=== PATIENT | female | born 1945 | race Caucasian/White ===

== ENCOUNTER 2019-10-20 04:07 | Observation (INO) ==
[2019-10-20 04:19] VITALS: BMI 23.8
[2019-10-20] MEDS ORDERED: NS 500 ML IV 500 ML IV ONE ×2 (04:47→04:53)
[2019-10-20] MEDS ORDERED: MORPHINE SULFATE INJ 2 MG INJ IVP ONE (04:56)
--- NOTE | 2019-10-20 04:56 | ED.ABDFE ---
HPI Time Seen Time Seen by Provider: 10/20/19 04:45 Complaint Doctors Chief Complaint Comments: A 74 y/o female presenting with complain of Lt sided abdominal pain since sometimes yesterday. She can't characterize it- It's just pain. She denies fever, nausea or vomiting. She denies recent travel or c onsumption of poorly prepared meals. She had a recent BM. Chief Complaint:: PT STATES" I'M HURTING IN MY LOWER LT ABD I HAD SOME DIARRHEA YESTERDAY" Reviewed Nurses Notes Review: Yes Source History Provided: Patient Mode of arrival Mode of Arrival: Ambulatory Timing Onset of Chief Complaint: 10/20/19 Location Location: [facility] Quality Quality: Other (unable to describe) Context History of: Abdominal surgery Modifying factors Worsening Factors: Nothing Improving Factors: Nothing Associated signs and symptoms Associated Signs and Symptoms: None PMH PMH Past Medical History: No Past Surgical History: Yes Surgical History: Cholecystectomy and Tonsillectomy Family History History of Family Medical Conditions: No Social History Does patient currently use any type of tobacco product: Yes Have you used tobacco products in the last 12 months: Yes Type of Tobacco Use: Cigarettes Does any household member use tobacco: Yes Alcohol Use: Occasionally Do you use any recreational Drugs:: No Lives With: Family Lives Where: Home Travel Risk Coronavirus risk:travel/contact w/high risk person: No Has patient experienced Coronavirus symptoms: No Infectious screening In the last 2 months have you had wt loss of >10#?: NO Have you had fever, night sweats or hemotysis?: No Have you traveled outside the country in the last 6 months?: No Isolation: Standard ROS Review of Systems Constitutional: No Symptoms Reported Eyes: No Symptoms Reported ENTM: No Symptoms Reported Respiratoy: No Symptoms Reported Cardiovascular: No Symptoms Reported Gastrointestinal/Abdominal: Abdominal Pain Genitourinary: No Symptoms Reported Neurological: No Symptoms Reported Musculoskeletal: No Symptoms Reported Integumentary: No Symptoms Reported Hematologic/Lymphatic: No Symptoms Reported Endocrine: No Symptoms Reported Psychiatric: No Symptoms Reported All Other Systems: Reviewed and Negative PE Vital Signs Vitals: Temperature 97.6 F Pulse Rate 88 Respiratory Rate 20 Blood Pressure 194/84 O2 Sat by Pulse Oximetry 95 General Limitations: No Limitations General Appearance: Alert Head Head Exam: Normal Inspection, Atraumatic and Normocephalic Eyes Eye exam: Normal Appearance and EOMI ENT ENT Exam: Normal Exam, Normal Oropharynx, Normal External Ear Exam and Mucous Membranes Moist Neck Neck Exam: Normal Inspection, Full ROM and Trachea Midline Chest Chest Inspection: Normal Inspection and Symmetric Chest Wall Rise Respiratory Respiratory Exam: Normal Lung Sounds Bilat Cardiovascular Cardiovascular Exam: Regular Rate, Normal Rhythm, Normal Heart Sounds, +S1 and +S2 Abdominal Exam Abdominal Exam: Normal Inspection, Normal Bowel Sounds, Soft and Tenderness; negative Distention, Guarding, Rebound, Rigidity, Dimnished Bowel Sounds, Hyperactive Bowel Sounds, Hypoactive Bowel Sounds, Organomegaly, Trauma, Incision, Ascites, Mass, Bruit, Pulsatile Mass and Hernia Abdominal Tenderness: LLQ Rectal Rectal Exam: Deferred Back Back Exam: Normal Inspection and Full ROM Extremeties Extremities Exam: Normal Inspection and Full ROM External Exam: Female: Deferred Neurologic Neurological Exam: Alert and Oriented X3 Psychiatric Psychiatric Exam: Normal Affect and Normal Mood Skin Skin Exam: Dry and Intact MDM Differential Diagnosis Differential Diagnosis- Considerations may include:: Urolithiasis and Other (comments) (Diverticulitis) COURSE Reevaluation 1st: Improved Consultation Consultation Comments: I had discussed the presentation and findings with Dr. Toth, he's okay with the admission to OBS. Education/Counseling Education/Counseling: Patient, Education and Counseling Educated On: Treatment, Diagnosis, Prognosis and Needs for Follow Up ROR Labs Reviewed Laboratory Results Reviewed?: Yes Result Diagrams: 10/20/19 05:05 10/20/19 05:05 Laboratory: WBC 10.5 X10^3/uL (3.6-10.0) H 10/20/19 05:05 RBC 4.06 X10^6/uL (3.5-5.4) 10/20/19 05:05 Hgb 12.7 g/dL (12.0-16.0) 10/20/19 05:05 Hct 37.2 % (36.0-47.0) 10/20/19 05:05 MCV 91.6 fL (80.0-100.0) 10/20/19 05:05 MCH 31.3 pg (27.0-34.0) 10/20/19 05:05 MCHC 34.2 g/dL (33.0-35.0) 10/20/19 05:05 RDW 13.0 % (11.6-16.5) 10/20/19 05:05 Plt Count 232 X10^3/uL (150.0-450.0) 10/20/19 05:05 MPV 8.4 fL (7.4-11.0) 10/20/19 05:05 Neut % (Auto) 81.2 % (42.0-75.0) H 10/20/19 05:05 Lymph % (Auto) 11.1 % (21.0-51.0) L 10/20/19 05:05 [place] % (Auto) 6.9 % (0.0-13.0) 10/20/19 05:05 Eos % (Auto) 0.1 % (0.9-2.9) L 10/20/19 05:05 Baso % (Auto) 0.7 % (0.2-1.0) 10/20/19 05:05 Neut # (Auto) 8.5 x10^3/uL (2.2-4.8) H 10/20/19 05:05 Lymph # (Auto) 1.2 X10^3/uL (1.3-2.9) L 10/20/19 05:05 [place] # (Auto) 0.7 x10^3/uL (0.3-0.8) 10/20/19 05:05 Eos # (Auto) 0.0 x10^3/uL (0.0-0.2) 10/20/19 05:05 Baso # (Auto) 0.1 X10^3/uL (0.0-0.1) 10/20/19 05:05 Absolute Nucleated RBC 0.0 /100WBC 10/20/19 05:05 Sodium 141 mmol/L (136-145) 10/20/19 05:05 Corrected Sodium 142 mmol/L (136-145) 10/20/19 05:05 Potassium 3.5 mmol/L (3.5-5.1) 10/20/19 05:05 Chloride 103 mmol/L (98-107) 10/20/19 05:05 Carbon Dioxide 26.1 mmol/L (21-32) 10/20/19 05:05 BUN 15 mg/dL (7-18) 10/20/19 05:05 Creatinine 0.81 mg/dL (0.55-1.02) 10/20/19 05:05 Est GFR (MDRD) Af Amer > 60 (>60) 10/20/19 05:05 Est GFR (MDRD) Non-Af > 60 (>60) 10/20/19 05:05 Glucose 134 mg/dL (65-99) H 10/20/19 05:05 Calcium 9.3 mg/dL (8.5-10.1) 10/20/19 05:05 Corrected Calcium TNP 10/20/19 05:05 Total Bilirubin 0.80 mg/dL (0.2-1.0) 10/20/19 05:05 AST 20 Units/L (15-37) 10/20/19 05:05 ALT 29 Units/L (12-78) 10/20/19 05:05 Alkaline Phosphatase 149 Units/L (46-116) H 10/20/19 05:05 Total Protein 7.5 g/dL (6.4-8.2) 10/20/19 05:05 Albumin 3.7 g/dL (3.4-5.0) 10/20/19 05:05 Globulin 3.8 g/dL (2.5-4.5) 10/20/19 05:05 Albumin/Globulin Ratio 1.0 Ratio (1.1-2.1) L 10/20/19 05:05 Opioid Opioid Risk Tool Age ([place] box if 16-45): No History of Preadolescent Sexual Abuse: No Total: 0 Total Score Risk Category: Low Risk Copyright: [facility] predicting aberrant behaviors Diagnosis Discharge Problem: Renal colic on left side, Diverticulosis of colon ADDITIONAL NOTES Additional Notes Additional Notes: Name: EDDIE CORONADO [facility]#: [id number] : 1945 Sex: F Location: ER Order Number(s): [id number] Procedure(s):ABDOMEN/PELVIS WITH CON Ordering Physician: XIAO EVANS Primary Care: Chetna MON Service Date: 10/20/19 Service Time: 719 HISTORY LLQ PAIN STUDY ABDOMEN/PELVIS WITH CON COMPARISON None TECHNIQUE Multiple axial images of the abdomen and pelvis were obtained from the lung bases to the pubic symphysis after the administration of IV contrast. Dose reduction techniques including Automated Exposure Control (AEC) and adjustment of mA and kV were utilized. FINDINGS The visualized portions of the lung bases are unremarkable. The left kidney demonstrates some mild hydronephrosis and hydroureter secondary to a 3 mm proximal left ureteral stone. The solid organs otherwise unremarkable in their contrast appearance. The gallbladder is surgically absent with some biliary ductal dilatation which is commonly seen in patients status post cholecystectomy.... No significant mesenteric lymphadenopathy or stranding can be observed. No free fluid or free air is seen within the abdomen. No bowel wall thickening or bowel dilatation is present. The colon demonstrates severe diverticulosis involving the left-sided colon most notably in the sigmoid colon. There is no evidence to suggest diverticulitis. The appendix is normal. There is tiny calcified probable uterine fibroids.. The urinary bladder is grossly unremarkable. The bony structures are grossly intact. IMPRESSION Left-sided obstructive uropathy as above. Left-sided diverticulosis without evidence for diverticulitis. Electronically signed by: CAITIE LONG (Oct 20, 2019 07:45:28)
[2019-10-20] MEDS ORDERED: MORPHINE SULFATE INJ 2 MG INJ ONE (05:19)
[2019-10-20 05:20] LABS: BASOPHILS # (AUTO) 0.1 X10^3/uL (0.0-0.1); BASOPHILS % (AUTO) 0.7 % (0.2-1.0); EOSINOPHILS % (AUTO) 0.1 % (0.9-2.9); HEMATOCRIT 37.2 % (36.0-47.0); HEMOGLOBIN 12.7 g/dL (12.0-16.0); LYMPHOCYTES # (AUTO) 1.2 X10^3/uL (1.3-2.9); LYMPHOCYTES % (AUTO) 11.1 % (21.0-51.0); MEAN CORPUSCULAR HEMOGLOBIN 31.3 pg (27.0-34.0); MEAN CORPUSCULAR HGB CONC 34.2 g/dL (33.0-35.0); MEAN CORPUSCULAR VOLUME 91.6 fL (80.0-100.0); MEAN PLATELET VOLUME 8.4 fL (7.4-11.0); MONOCYTES # (AUTO) 0.7 x10^3/uL (0.3-0.8); MONOCYTES % (AUTO) 6.9 % (0.0-13.0); NEUTROPHILS # (AUTO) 8.5 x10^3/uL (2.2-4.8); NEUTROPHILS % (AUTO) 81.2 % (42.0-75.0); PLATELET COUNT 232 X10^3/uL (150.0-450.0); RED BLOOD COUNT 4.06 X10^6/uL (3.5-5.4); WHITE BLOOD COUNT 10.5 X10^3/uL (3.6-10.0)
[2019-10-20 05:29] LABS: ALANINE AMINOTRANSFERASE 29 Units/L (12-78); ALBUMIN 3.7 g/dL (3.4-5.0); ALKALINE PHOSPHATASE 149 Units/L (46-116); ASPARTATE AMINO TRANSFERASE 20 Units/L (15-37); BLOOD UREA NITROGEN 15 mg/dL (7-18); CALCIUM 9.3 mg/dL (8.5-10.1); CARBON DIOXIDE 26.1 mmol/L (21-32); CHLORIDE 103 mmol/L (98-107); COR NA(FOR HYPERGLY) 142 mmol/L (136-145); CREATININE 0.81 mg/dL (0.55-1.02); SODIUM 141 mmol/L (136-145); TOTAL PROTEIN 7.5 g/dL (6.4-8.2); eGFR NON BLACK RACES > 60 (>60)
--- NOTE | 2019-10-20 07:47 | CT ---
HISTORYLLQ PAINSTUDYABDOMEN/PELVIS WITH CONCOMPARISONNoneTECHNIQUEMultiple axial images of the abdomen and pelvis were obtained from the lung bases to the pubic symphysis after the administration of IV contrast. Dose reduction techniques including Automated Exposure Control (AEC) and adjustment of mA and kV were utilized.FINDINGSThe visualized portions of the lung bases are unremarkable. The left kidney demonstrates some mild hydronephrosis and hydroureter secondary to a 3 mm proximal left ureteral stone. The solid organs otherwise unremarkable in their contrast appearance. The gallbladder is surgically absent with some biliary ductal dilatation which is commonly seen in patients status post cholecystectomy.... No significant mesenteric lymphadenopathy or stranding can be observed. No free fluid or free air is seen within the abdomen. No bowel wall thickening or bowel dilatation is present. The colon demonstrates severe diverticulosis involving the left-sided colon most notably in the sigmoid colon. There is no evidence to suggest diverticulitis. The appendix is normal. There is tiny calcified probable uterine fibroids.. The urinary bladder is grossly unremarkable. The bony structures are grossly intact.IMPRESSIONLeft-sided obstructive uropathy as above.Left-sided diverticulosis without evidence for diverticulitis.Electronically signed by: CAITIE LONG (Oct 20, 2019 07:45:28)
--- NOTE | 2019-10-20 09:18 | DR.H&P ---
H&P History & Physical for Day of: H&P Date: 10/20/19 Chief Complaint Chief Complaint: Left sided flank pain Allergies Allergies Allergy/AdvReac Type Severity Reaction Status Date / Time Penicillins Allergy Verified 10/20/19 05:20 History of Present Illness History of Present Illness: Pt is a 74 y/o female w/o any known pmhx presenting after having left sided abdominal/flank pain since yesterday. She reports pain is sharp, spastic, without radiation. Denies fever, chills, chest pain, shortness of breath, dysuria, nausea, vomiting, diarrhea. Initial labs:Wbc 10.5, Hgb 12.7, Plt 232, Cr 0.81, Gluc 134. CTAP:L kidney mild hydronephrosis, 3mm proximal L ureteral stone (L sided obstructive uropathy), L sided diverticulosis w/o evidence of diverticulitis. Pt given IVF bolus and started on IVF, pain management, will get a UA, start flomax. BP elevated, will start on Norvasc 10mg. Continue to monitor and follow up labs in the morning. Past Surgical History Surgical History: Cholecystectomy and Tonsillectomy Social History Does patient currently use any type of tobacco product: Yes Have you used tobacco products in the last 12 months: Yes Type of Tobacco Use: Cigarettes Does any household member use tobacco: Yes Alcohol Use: Occasionally Medications Home Medications: Penicillins Allergy (Verified 10/20/19 05:20) Labs Result Diagrams: 10/20/19 05:05 10/20/19 05:05 Labs: Laboratory WBC 10.5 X10^3/uL (3.6-10.0) H 10/20/19 05:05 RBC 4.06 X10^6/uL (3.5-5.4) 10/20/19 05:05 Hgb 12.7 g/dL (12.0-16.0) 10/20/19 05:05 Hct 37.2 % (36.0-47.0) 10/20/19 05:05 MCV 91.6 fL (80.0-100.0) 10/20/19 05:05 MCH 31.3 pg (27.0-34.0) 10/20/19 05:05 MCHC 34.2 g/dL (33.0-35.0) 10/20/19 05:05 RDW 13.0 % (11.6-16.5) 10/20/19 05:05 Plt Count 232 X10^3/uL (150.0-450.0) 10/20/19 05:05 MPV 8.4 fL (7.4-11.0) 10/20/19 05:05 Neut % (Auto) 81.2 % (42.0-75.0) H 10/20/19 05:05 Lymph % (Auto) 11.1 % (21.0-51.0) L 10/20/19 05:05 [place] % (Auto) 6.9 % (0.0-13.0) 10/20/19 05:05 Eos % (Auto) 0.1 % (0.9-2.9) L 10/20/19 05:05 Baso % (Auto) 0.7 % (0.2-1.0) 10/20/19 05:05 Neut # (Auto) 8.5 x10^3/uL (2.2-4.8) H 10/20/19 05:05 Lymph # (Auto) 1.2 X10^3/uL (1.3-2.9) L 10/20/19 05:05 [place] # (Auto) 0.7 x10^3/uL (0.3-0.8) 10/20/19 05:05 Eos # (Auto) 0.0 x10^3/uL (0.0-0.2) 10/20/19 05:05 Baso # (Auto) 0.1 X10^3/uL (0.0-0.1) 10/20/19 05:05 Absolute Nucleated RBC 0.0 /100WBC 10/20/19 05:05 Sodium 141 mmol/L (136-145) 10/20/19 05:05 Corrected Sodium 142 mmol/L (136-145) 10/20/19 05:05 Potassium 3.5 mmol/L (3.5-5.1) 10/20/19 05:05 Chloride 103 mmol/L (98-107) 10/20/19 05:05 Carbon Dioxide 26.1 mmol/L (21-32) 10/20/19 05:05 BUN 15 mg/dL (7-18) 10/20/19 05:05 Creatinine 0.81 mg/dL (0.55-1.02) 10/20/19 05:05 Est GFR (MDRD) Af Amer > 60 (>60) 10/20/19 05:05 Est GFR (MDRD) Non-Af > 60 (>60) 10/20/19 05:05 Glucose 134 mg/dL (65-99) H 10/20/19 05:05 Calcium 9.3 mg/dL (8.5-10.1) 10/20/19 05:05 Corrected Calcium TNP 10/20/19 05:05 Total Bilirubin 0.80 mg/dL (0.2-1.0) 10/20/19 05:05 AST 20 Units/L (15-37) 10/20/19 05:05 ALT 29 Units/L (12-78) 10/20/19 05:05 Alkaline Phosphatase 149 Units/L (46-116) H 10/20/19 05:05 Total Protein 7.5 g/dL (6.4-8.2) 10/20/19 05:05 Albumin 3.7 g/dL (3.4-5.0) 10/20/19 05:05 Globulin 3.8 g/dL (2.5-4.5) 10/20/19 05:05 Albumin/Globulin Ratio 1.0 Ratio (1.1-2.1) L 10/20/19 05:05 Review of Systems Constitutional: denies Fever and Chills Eyes: No Symptoms Reported ENT: No Symptoms Reported Respiratory: No Symptoms Reported Cardiovascular: No Symptoms Reported Gastrointestinal: Abdominal Pain (Left flank) Genitourinary: denies Dysuria and Frequency Musculoskeletal: No Symptoms Reported Skin: No Symptoms Reported Neurological: No Symptoms Reported Physical Exam Vital Signs: Temperature 97.6 F Pulse Rate 88 Respiratory Rate 18 Blood Pressure 194/84 O2 Sat by Pulse Oximetry 100 Oriented: Normal Eyes: Normal Ear: Normal Nose: Normal Throat: Normal Respiratory: Clear Throughout Cardiovascular: Normal : negative Dysuria Auscultation: Bowel Sounds: Normal Palpation: Normal Tenderness: LLQ, Mild and Guarding; negative Rebound and Rigidity Skin: Normal Musculoskeletal: Normal Psychiatric: Normal Mood Description: Calm Speech Pattern: Clear Assessment/Plan (1) Left ureteral stone: Status: Acute Plan: 3mm obstructing Left ureteral stone. Will start on IVF, Flomax. Mildly elevated wbc, will get UA. F/u results. (2) Renal colic on left side: Status: Acute (3) Diverticulosis of colon: Status: Acute (4) Hypertension: Status: Acute Plan: BP elevated, will start on Norvasc 10mg. Review H&P Reviewed: Yes Patient was examined?: Yes
[2019-10-20] MEDS ORDERED: ZOFRAN INJ 4 MG VIAL IVP PRN (10:48)
[2019-10-20] MEDS ORDERED: MORPHINE SULFATE INJ 2 MG INJ IVP PRN (10:48)
[2019-10-20] MEDS: NORVASC TAB 10 MG PO SCH (12:32)
[2019-10-20] MEDS: FLOMAX PO SCH (12:32)
[2019-10-20] MEDS: NS 1000 ML 1,000 ML IV SCH (12:32)
[2019-10-20 13:27] LABS: BILIRUBIN,URINE NEGATIVE (NEGATIVE); BLOOD/HEMOGLOBIN,URINE 2+ (NEGATIVE); GLUCOSE, URINE NEGATIVE (NEGATIVE); KETONES,URINE NEGATIVE (NEGATIVE); LEUKOCYTE ESTERASE ,URINE 1+ (NEGATIVE); NITRITES,URINE NEGATIVE (NEGATIVE); PH,URINE 6.5 (5.0 - 8.0); PROTEIN,URINE 2+ (NEGATIVE); UROBILINOGEN,URINE 1+ (NORMAL)
[2019-10-20 13:43] LABS: APPEARANCE,URINE CLEAR (CLEAR); COLOR,URINE YELLOW (YELLOW)
[2019-10-20 13:44] LABS: AMORPHOUS SEDIMENT,UR TRACE /HPF (NEGATIVE); BACTERIA,URINE NEGATIVE /HPF (NEGATIVE); SQUAMOUS EPITHELIAL CELL,UR RARE /HPF (NEGATIVE)
[2019-10-20] MEDS ORDERED: POTASSIUM CHL 60 MEQ/NS 0.45% 500 ML IV PRN (18:24)
[2019-10-20] MEDS ORDERED: MICRO K EXTEN CAP 10 MEQ PO PRN (18:24)
[2019-10-20] MEDS ORDERED: K-RIDER 10 MEQ/NS 100 ML 10 MEQ/100 ML BAG IV PRN (18:24)
[2019-10-20] MEDS ORDERED: POTASSIUM CHLORIDE LIQ 20 MEQ UDC PO PRN (18:24)
[2019-10-20] MEDS ORDERED: K-DUR TAB 20 MEQ PO PRN (18:24)
[2019-10-20] MEDS ORDERED: KLOR-CON PO PRN (18:24)
[2019-10-20] MEDS ORDERED: POTASSIUM CHL 40 MEQ/NS 0.45% 500 ML IV PRN (18:24)
[2019-10-20] MEDS: MAGNESIUM SULFATE 1 GRAM/100 mL PREMIX 1 GM/100 ML BAG IV PRN ×2 (20:24→20:26)
[2019-10-21] MEDS: NS 1000 ML 1,000 ML IV SCH (00:40)
[2019-10-21 05:03] LABS: BASOPHILS % (AUTO) 0.5 % (0.2-1.0); EOSINOPHILS % (AUTO) 0.5 % (0.9-2.9); HEMATOCRIT 33.4 % (36.0-47.0); HEMOGLOBIN 11.5 g/dL (12.0-16.0); LYMPHOCYTES # (AUTO) 2.6 X10^3/uL (1.3-2.9); MEAN CORPUSCULAR HEMOGLOBIN 31.7 pg (27.0-34.0); MEAN CORPUSCULAR HGB CONC 34.6 g/dL (33.0-35.0); MEAN CORPUSCULAR VOLUME 91.8 fL (80.0-100.0); MEAN PLATELET VOLUME 8.8 fL (7.4-11.0); MONOCYTES # (AUTO) 0.6 x10^3/uL (0.3-0.8); MONOCYTES % (AUTO) 8.5 % (0.0-13.0); NEUTROPHILS # (AUTO) 4.1 x10^3/uL (2.2-4.8); NEUTROPHILS % (AUTO) 55.5 % (42.0-75.0); PLATELET COUNT 201 X10^3/uL (150.0-450.0); RED BLOOD COUNT 3.63 X10^6/uL (3.5-5.4); WHITE BLOOD COUNT 7.4 X10^3/uL (3.6-10.0)
[2019-10-21 05:13] LABS: BLOOD UREA NITROGEN 14 mg/dL (7-18); CALCIUM 8.3 mg/dL (8.5-10.1); CARBON DIOXIDE 24.9 mmol/L (21-32); CHLORIDE 107 mmol/L (98-107); CREATININE 0.96 mg/dL (0.55-1.02); SODIUM 141 mmol/L (136-145); eGFR NON BLACK RACES > 60 (>60)
[2019-10-21] MEDS: FLOMAX PO SCH (08:28)
[2019-10-21] MEDS: NORVASC TAB 10 MG PO SCH (08:28)
[2019-10-21 08:39] VITALS: BP 148/69
--- NOTE | 2019-10-21 08:44 | W.DIS.FURT ---
Summary of Discharge Discharge Summary of Date Date of Exam: 10/21/19 Admission Date Date of Admission: 10/20/19 Admission Diagnosis Hospital Course: Pt is a 74 y/o female w/o any known pmhx admitted for Left obstructing urolithiasis. Confirmed on CTAP:L kidney mild hydronephrosis, 3mm proximal L ureteral stone (L sided obstructive uropathy), L sided diverticulosis w/o evidence of diverticulitis. Pt hospital course involved IVF, pain management, and started on flomax. She still had not passed the stone on discharge, but labs including kidney function remained stable. Incidently BP elevated, and pt was started on Norvasc 10mg. Pt discharged with Rx norco, flomax, and instructed to drink adequate amount of fluids. She is referred to see urology-Dr Mullen on Thursday. Pt discharged in stable condition. Instructed to follow up with pcp in 1 week. Vital Signs: Vital Signs (72 hours) 10/20/19 04:10 10/20/19 05:30 10/20/19 06:00 Temperature 97.6 F Pulse Rate 88 Pulse Rate [Bilateral Radial] Respiratory Rate 18 20 18 Blood Pressure 194/84 Blood Pressure [Left Arm] Blood Pressure [Right Arm] O2 Sat by Pulse Oximetry 95 10/20/19 08:59 10/20/19 09:25 10/20/19 12:00 Temperature 98.1 F 98.3 F Pulse Rate Pulse Rate [Bilateral Radial] 87 71 Respiratory Rate 18 20 18 Blood Pressure Blood Pressure [Left Arm] Blood Pressure [Right Arm] 187/77 149/67 O2 Sat by Pulse Oximetry 100 97 97 10/20/19 16:00 10/20/19 20:00 10/21/19 00:00 Temperature 98.3 F 98.4 F 98.0 F Pulse Rate Pulse Rate [Bilateral Radial] 89 87 89 Respiratory Rate 18 20 20 Blood Pressure Blood Pressure [Left Arm] 146/67 Blood Pressure [Right Arm] 149/59 161/68 O2 Sat by Pulse Oximetry 96 98 96 10/21/19 03:52 10/21/19 08:00 Temperature 98.4 F 98.8 F Pulse Rate Pulse Rate [Bilateral Radial] 83 84 Respiratory Rate 20 18 Blood Pressure Blood Pressure [Left Arm] 152/69 148/69 Blood Pressure [Right Arm] O2 Sat by Pulse Oximetry 96 96 Labs: Laboratory Last Values WBC 7.4 X10^3/uL (3.6-10.0) 10/21/19 04:18 RBC 3.63 X10^6/uL (3.5-5.4) 10/21/19 04:18 Hgb 11.5 g/dL (12.0-16.0) L 10/21/19 04:18 Hct 33.4 % (36.0-47.0) L 10/21/19 04:18 MCV 91.8 fL (80.0-100.0) 10/21/19 04:18 MCH 31.7 pg (27.0-34.0) 10/21/19 04:18 MCHC 34.6 g/dL (33.0-35.0) 10/21/19 04:18 RDW 13.0 % (11.6-16.5) 10/21/19 04:18 Plt Count 201 X10^3/uL (150.0-450.0) 10/21/19 04:18 MPV 8.8 fL (7.4-11.0) 10/21/19 04:18 Neut % (Auto) 55.5 % (42.0-75.0) 10/21/19 04:18 Lymph % (Auto) 35.0 % (21.0-51.0) 10/21/19 04:18 [place] % (Auto) 8.5 % (0.0-13.0) 10/21/19 04:18 Eos % (Auto) 0.5 % (0.9-2.9) L 10/21/19 04:18 Baso % (Auto) 0.5 % (0.2-1.0) 10/21/19 04:18 Neut # (Auto) 4.1 x10^3/uL (2.2-4.8) 10/21/19 04:18 Lymph # (Auto) 2.6 X10^3/uL (1.3-2.9) 10/21/19 04:18 [place] # (Auto) 0.6 x10^3/uL (0.3-0.8) 10/21/19 04:18 Eos # (Auto) 0.0 x10^3/uL (0.0-0.2) 10/21/19 04:18 Baso # (Auto) 0.0 X10^3/uL (0.0-0.1) 10/21/19 04:18 Absolute Nucleated RBC 0.1 /100WBC 10/21/19 04:18 Sodium 141 mmol/L (136-145) 10/21/19 04:18 Corrected Sodium TNP 10/21/19 04:18 Potassium 3.8 mmol/L (3.5-5.1) 10/21/19 04:18 Chloride 107 mmol/L (98-107) 10/21/19 04:18 Carbon Dioxide 24.9 mmol/L (21-32) 10/21/19 04:18 BUN 14 mg/dL (7-18) 10/21/19 04:18 Creatinine 0.96 mg/dL (0.55-1.02) 10/21/19 04:18 Est GFR (MDRD) Af Amer > 60 (>60) 10/21/19 04:18 Est GFR (MDRD) Non-Af > 60 (>60) 10/21/19 04:18 Glucose 101 mg/dL (65-99) H 10/21/19 04:18 Calcium 8.3 mg/dL (8.5-10.1) L 10/21/19 04:18 Corrected Calcium TNP 10/20/19 05:05 Magnesium 2.3 mg/dL (1.7-2.9) 10/21/19 04:18 Total Bilirubin 0.80 mg/dL (0.2-1.0) 10/20/19 05:05 AST 20 Units/L (15-37) 10/20/19 05:05 ALT 29 Units/L (12-78) 10/20/19 05:05 Alkaline Phosphatase 149 Units/L (46-116) H 10/20/19 05:05 Total Protein 7.5 g/dL (6.4-8.2) 10/20/19 05:05 Albumin 3.7 g/dL (3.4-5.0) 10/20/19 05:05 Globulin 3.8 g/dL (2.5-4.5) 10/20/19 05:05 Albumin/Globulin Ratio 1.0 Ratio (1.1-2.1) L 10/20/19 05:05 Specimen Type Clean catch urine 10/20/19 13:11 Urine Color Yellow (YELLOW) 10/20/19 13:11 Urine Appearance Clear (CLEAR) 10/20/19 13:11 Urine pH 6.5 (5.0 - 8.0) 10/20/19 13:11 Ur Specific [place] 1.010 (1.000-1.030) 10/20/19 13:11 Urine Protein 2+ (NEGATIVE) 10/20/19 13:11 Urine Glucose (UA) Negative (NEGATIVE) 10/20/19 13:11 Urine Ketones Negative (NEGATIVE) 10/20/19 13:11 Urine Occult Blood 2+ (NEGATIVE) 10/20/19 13:11 Urine Nitrite Negative (NEGATIVE) 10/20/19 13:11 Urine Bilirubin Negative (NEGATIVE) 10/20/19 13:11 Urine Urobilinogen 1+ (NORMAL) 10/20/19 13:11 Ur Leukocyte Esterase 1+ (NEGATIVE) 10/20/19 13:11 Urine RBC 3-5 /HPF (0-3) A 10/20/19 13:11 Urine WBC 0-2 /HPF (0-5) 10/20/19 13:11 Ur Squamous Epith Cells Rare /HPF (NEGATIVE) 10/20/19 13:11 Amorphous Sediment Trace /HPF (NEGATIVE) 10/20/19 13:11 Urine Bacteria Negative /HPF (NEGATIVE) 10/20/19 13:11 Ur Culture Indicated? No/not indicated 10/20/19 13:11 Reason For Visit: OBSTRUCTIVE UROPATHY RENAL COLIC DIVERTICULOSIS Discharge Date Discharge Date: 10/21/19 Discharge Diagnosis All Active Problems (Updated 10/20/19 @ 12:42 by Irving Toth) Hypertension (Acute) Left ureteral stone (Acute) Renal colic on left side (Acute) Diverticulosis of colon (Acute) Plan of Treatment: Continue with present treatment and follow up plan. Pt is to keep follow up appointment as instructed and take medications as ordered. Discharge Medications Discharge Medications: Penicillins Allergy (Verified 10/20/19 05:20) CONTINUE taking the following medications NK 10/20/19 [History] New Prescriptions amlodipine 10 mg PO DAILY 30 Days #30 tab 10/21/19 [Rx] hydrocodone-acetaminophen [Bard] 1 tab PO BID PRN 10 Days #20 tab NS MDD 10mg 10/21/19 [Rx] tamsulosin 0.4 mg PO DAILY 30 Days #30 cap 10/21/19 [Rx] Follow up and Referral Follow Up: 1 Week Discharge Disposition Assessment: Stable no acute distress noted at time of discharge. Discharge Disposition: Home Discharge Condition: Stable
== END 2019-10-21 09:45 | disposition home or self-care (01) ==
LOC: ER 04:09 → MED/SURG 04:09
PROVIDERS: ADMIT Family Medicine; ATTEND Family Medicine
DX: N23 Unspecified renal colic; N13.8 Other obstructive and reflux uropathy; N20.1 Calculus of ureter; K57.30 Diverticulosis of large intestine without perforation or abscess without bleeding; I10 Essential (primary) hypertension; Z79.899 Other long term (current) drug therapy
CPT/HCPCS: 36415; 74177; 80048; 80053; 81001; 83735; 85025; 87086; 96360; 96361; 96365; 96374; 99284; A4222; G0378; J2270; J3475; J7030; J7040

== ENCOUNTER 2019-11-12 17:06 | Inpatient (IN) ==
[2019-11-12 17:20] VITALS: BMI 23.9
--- NOTE | 2019-11-12 20:36 | DR.AMS ---
HPI Time Seen Time Seen by Provider: 11/12/19 20:36 PCP Primary Care Physician: ELIESER HPI Comment HPI Comment: 74 yo f w/ prev hx of tia, htn, renal colic presents w/ approx. 1 day hx of ams. Per son, awoke this morning, appeared more confused, taking lo nger to answer questions, fatigued, decreased oral intake t/o the day. No recent f/c, abd pain, cough, n/v/d, urinary sx's, headache, focal numbness/ weakness, CP or sob. Complaint Chief Complaint:: PTS SON STATES , NOT TALKATIVE , NO EATING TODAY , NOT DRINKING TODAY , PT HAS C/O BEING TIRED AND NOT ACTING LIKE HERSELF, PT IS ABLE TO ANSWER QUESTIONS SHE KNOW WHO SHE IS AND WHERE SHE IS AT PT DENIES AND TRAUMA OR PAIN, BR PT HAS ALSO HAS < URINTATION TODAY ,BR Self Treatment fo Chief Complaint: PT IS ABLE TO ANSWER QUESTIONS ,BR COVID-19 Coronavirus risk:travel/contact w/high risk person: No Has patient experienced Coronavirus symptoms: No Reviewed Nurses Notes Reviewed: Yes Source History Provided: Patient and Family Member Mode of Arrival Mode of Arrival: Wheelchair Timing Onset of Chief Complaint: 11/12/19 Context Recent: denies Fever, Cough, Urinary Symptoms, Nausea, Vomiting and Medication Change History Of: denies On Insulin Associated Signs and Symptoms Associated Signs and Symptoms: Confusion and Decreased Oral Intake; denies Right Sided Weakness, Left Sided Weakness, Generalized Weakness, Headache, Slurred Speech, Decreased LOC and Unresponsiveness PMH PMH Past Medical History: Yes Past Medical History Comment: RENAL STONES Past Surgical History: No Surgical History: Cholecystectomy and Tonsillectomy Family History History of Family Medical Conditions: Yes Family Medical History: Diabetes Mellitus, Cancer, [place] and Hypertension Social History Does patient currently use any type of tobacco product: Yes Have you used tobacco products in the last 12 months: Yes Type of Tobacco Use: VAPES Does any household member use tobacco: No Alcohol Use: Rarely Do you use any recreational Drugs:: No Lives With: Family Lives Where: Home Travel Risk Coronavirus risk:travel/contact w/high risk person: No Has patient experienced Coronavirus symptoms: No Infectious screening In the last 2 months have you had wt loss of >10#?: NO Have you had fever, night sweats or hemotysis?: No Have you traveled outside the country in the last 6 months?: No Isolation: Standard ROS Review of Systems Constitutional: Malaise and Fatigue; negative Chills and Fever Gastrointestinal/Abdominal: Other (decreased appetite. ); negative Abdominal Pain, Nausea, Vomiting and Food Intolerance Genitourinary: negative Dysuria, Frequency and Hematuria PE Vitals Vital Signs: Temp Pulse Pulse Resp BP BP BP 11/13/19 00:52 99.0 F 82 18 122/57 11/12/19 23:12 99.0 F 95 H 20 137/60 11/12/19 17:14 99.2 F 121 H 20 133/64 10/21/19 08:00 148/69 Pulse Ox 11/13/19 00:52 95 11/12/19 23:12 95 11/12/19 17:14 94 L 10/21/19 08:00 General Limitations: Language Barrier General Appearance: Alert Head Head Exam: Normal Inspection Eyes Eye exam: Normal Appearance ENT ENT Exam: Normal Exam External Ear Exam: Normal External Inspection Nose Exam: Normal Nose Exam Mouth Exam: Normal Inspection Throat Exam: Normal Inspection Neck Neck Exam: Normal Inspection Chest Chest Inspection: Normal Inspection Respiratory Respiratory Exam: Normal Lung Sounds Bilat Cardiovascular Cardiovascular Exam: Normal Rhythm and Systolic Murmur; negative Tachycardia Abdominal Exam Abdominal Exam: Normal Inspection, Normal Bowel Sounds and Soft Extremities Extremities Exam: Normal Inspection Back Back Exam: Normal Inspection Neurological Neurological Exam: Alert and Oriented X3 Psychological Psychiatric Exam: Normal Affect and Normal Mood Skin Skin Exam: Warm, Dry, Intact and Normal Color Other Exam Other Exam: 5/5 strength all 4 extremities, cn 2-12 grossly intact. a/o x 2. disoriented to time. No dysarthria. No pronator drift. MDM Differential Diagnosis Metabolic: Dehydration, Hypoglycemia and Hypoxemia Structural: CVA and SAH Infectious: Sepsis and UTI COURSE Treatment Treatment: 74 yo cf w/ prev hx of htn, renal colic, tia (multiple) presents w/ ams x 1 day. Non focal neuro exam. Afebrile. Mod leukocytosis noted. EKG wnl. UA unremarkable. CXR normal. CT head w/ multiple remote lacunar infarcts. Aspirin loaded. Will admit for further eval of ams. D/w Dr kaplan whom agrees to admit patient. Education/Counseling Education/Counseling: Patient and Family Educated On: Treatment, Diagnosis, Prognosis and Needs for Follow Up ROR Labs Reviewed Laboratory Results Reviewed?: Yes Result Diagrams: 11/12/19 20:46 11/12/19 20:46 Laboratory: WBC 18.0 X10^3/uL (3.6-10.0) H 11/12/19 20:46 RBC 3.88 X10^6/uL (3.5-5.4) 11/12/19 20:46 Hgb 12.0 g/dL (12.0-16.0) 11/12/19 20:46 Hct 35.6 % (36.0-47.0) L 11/12/19 20:46 MCV 91.7 fL (80.0-100.0) 11/12/19 20: MCH 30.8 pg (27.0-34.0) 11/12/19 20:46 MCHC 33.6 g/dL (33.0-35.0) 11/12/19 20:46 RDW 12.6 % (11.6-16.5) 11/12/19 20:46 Plt Count 215 X10^3/uL (150.0-450.0) 11/12/19 20:46 Plt Count Comment Adequate (ADEQUATE) 11/12/19 20:46 MPV 8.1 fL (7.4-11.0) 11/12/19 20:46 Neut % (Auto) 91.1 % (42.0-75.0) H 11/12/19 20:46 Lymph % (Auto) 3.2 % (21.0-51.0) L 11/12/19 20:46 [place] % (Auto) 5.5 % (0.0-13.0) 11/12/19 20:46 Eos % (Auto) 0.0 % (0.9-2.9) L 11/12/19 20:46 Baso % (Auto) 0.2 % (0.2-1.0) 11/12/19 20:46 Neut # (Auto) 16.4 x10^3/uL (2.2-4.8) H 11/12/19 20:46 Lymph # (Auto) 0.6 X10^3/uL (1.3-2.9) L 11/12/19 20:46 [place] # (Auto) 1.0 x10^3/uL (0.3-0.8) H 11/12/19 20:46 Eos # (Auto) 0.0 x10^3/uL (0.0-0.2) 11/12/19 20:46 Baso # (Auto) 0.0 X10^3/uL (0.0-0.1) 11/12/19 20:46 Absolute Nucleated RBC 0.0 /100WBC 11/12/19 20:46 Total Counted 100 11/12/19 20:46 Neutrophils % (Manual) 85 % (39-76) H 11/12/19 20:46 Lymphocytes % (Manual) 10 % (13-43) L 11/12/19 20:46 Monocytes % (Manual) 5 % (4-9) 11/12/19 20:46 Plt Morphology Comment Normal (NORMAL) 11/12/19 20:46 RBC Morphology Normal (NORMAL) 11/12/19 20:46 Sodium 140 mmol/L (136-145) 11/12/19 20:46 Corrected Sodium 142 mmol/L (136-145) 11/12/19 20:46 Potassium 3.7 mmol/L (3.5-5.1) 11/12/19 20:46 Chloride 101 mmol/L (98-107) 11/12/19 20:46 Carbon Dioxide 27.1 mmol/L (21-32) 11/12/19 20:46 BUN 18 mg/dL (7-18) 11/12/19 20:46 Creatinine 1.02 mg/dL (0.55-1.02) 11/12/19 20:46 Est GFR (MDRD) Af Amer > 60 (>60) 11/12/19 20:46 Est GFR (MDRD) Non-Af 56 (>60) L 11/12/19 20:46 Glucose 199 mg/dL (65-99) H 11/12/19 20:46 Calcium 9.3 mg/dL (8.5-10.1) 11/12/19 20:46 Troponin I < 0.02 ng/mL (0-1.5) 11/12/19 20:46 Specimen Type Catherized urine 11/12/19 23:11 Urine Color Yellow (YELLOW) 11/12/19 23:11 Urine Appearance Slightly hazy (CLEAR) 11/12/19 23:11 Urine pH 6.0 (5.0 - 8.0) 11/12/19 23:11 Ur Specific [place] 1.020 (1.000-1.030) 11/12/19 23:11 Urine Protein 2+ (NEGATIVE) 11/12/19 23:11 Urine Glucose (UA) Negative (NEGATIVE) 11/12/19 23:11 Urine Ketones Negative (NEGATIVE) 11/12/19 23:11 Urine Occult Blood 2+ (NEGATIVE) 11/12/19 23:11 Urine Nitrite Negative (NEGATIVE) 11/12/19 23:11 Urine Bilirubin Negative (NEGATIVE) 11/12/19 23:11 Urine Urobilinogen Normal (NORMAL) 11/12/19 23:11 Ur Leukocyte Esterase Negative (NEGATIVE) 11/12/19 23:11 Urine RBC 3-5 /HPF (0-3) A 11/12/19 23:11 Urine WBC 3-5 /HPF (0-5) 11/12/19 23:11 Ur Squamous Epith Cells Rare /HPF (NEGATIVE) 11/12/19 23:11 Amorphous Sediment 1+ /HPF (NEGATIVE) 11/12/19 23:11 Urine Bacteria Trace /HPF (NEGATIVE) 11/12/19 23:11 Urine Mucus Few /HPF (NEGATIVE) 11/12/19 23:11 Ur Culture Indicated? No/not indicated 11/12/19 23:11 Other Results Comments: ct head w/ multiple remote lacunar infarct, no acute changes, cxr negative XRAY XRAY Interpreted by: Radiologist and Self EKG Rate: 98 [place]: Normal Rhythm: NSR Block: None Hypertrophy: None ST: Normal Opioid Opioid Risk Tool Age (Sedrick box if 16-45): No History of Preadolescent Sexual Abuse: No Total: 0 Total Score Risk Category: Low Risk Copyright: Iggy LAWLER predicting aberrant behaviors Diagnosis Discharge Problem: Lacunar infarction Altered mental status Qualifiers: Altered mental status type: transient alteration of awareness Qualified Code(s): R40.4 - Transient alteration of awareness Instructions Forms: Excuse From Work Precautions for COVID19 Social Distancing
[2019-11-12 20:52] LABS: BASOPHILS % (AUTO) 0.2 % (0.2-1.0); HEMATOCRIT 35.6 % (36.0-47.0); LYMPHOCYTES # (AUTO) 0.6 X10^3/uL (1.3-2.9); LYMPHOCYTES % (AUTO) 3.2 % (21.0-51.0); MEAN CORPUSCULAR HEMOGLOBIN 30.8 pg (27.0-34.0); MEAN CORPUSCULAR HGB CONC 33.6 g/dL (33.0-35.0); MEAN CORPUSCULAR VOLUME 91.7 fL (80.0-100.0); MEAN PLATELET VOLUME 8.1 fL (7.4-11.0); MONOCYTES % (AUTO) 5.5 % (0.0-13.0); NEUTROPHILS # (AUTO) 16.4 x10^3/uL (2.2-4.8); NEUTROPHILS % (AUTO) 91.1 % (42.0-75.0); PLATELET COUNT 215 X10^3/uL (150.0-450.0); RED BLOOD COUNT 3.88 X10^6/uL (3.5-5.4); RED CELL DISTRIBUTION WIDTH 12.6 % (11.6-16.5)
[2019-11-12 21:01] LABS: PLATELET MORPHOLOGY COMMENT NORMAL (NORMAL)
[2019-11-12 21:05] LABS: BLOOD UREA NITROGEN 18 mg/dL (7-18); CALCIUM 9.3 mg/dL (8.5-10.1); CARBON DIOXIDE 27.1 mmol/L (21-32); CHLORIDE 101 mmol/L (98-107); COR NA(FOR HYPERGLY) 142 mmol/L (136-145); CREATININE 1.02 mg/dL (0.55-1.02); SODIUM 140 mmol/L (136-145); TROPONIN I < 0.02 ng/mL (0-1.5); eGFR NON BLACK RACES 56 (>60)
--- NOTE | 2019-11-12 21:51 | RAD ---
HISTORYAltered mental statusSTUDYCHEST, 1 VIEWCOMPARISONNoneFINDINGSThe heart is within normal limits in size. The grecia are normal. The lung mcneil are clear. No pleural effusions are identified. The bony thorax is unremarkable.IMPRESSIONNo significant abnormality identifiedElectronically signed by: CELSA JAIN (Nov 12, 2019 21:50:18)
--- NOTE | 2019-11-12 21:55 | CT ---
HISTORYAltered mental statusSTUDYBRAIN W/O CONTechnique: Axial noncontrast images with coronal and sagittal reformats. Dose reduction procedures were used with mA/kv adjusted for body size.COMPARISONNoneFINDINGSThe ventricles are normal in size shape and position. There is mild cortical atrophy present likely age related. There is decreased attenuation in the periventricular white matter suggestive of small vessel vascular disease. There is an old lacunar infarct in the left centrum semiovale. There is an old lacunar infarct at the apex of the left internal capsule and in the left thalamus. There are no findings suggestive of recent CVA, hemorrhage, mass lesion, or extra-axial fluid collection. The visualized sinuses are clear. The calvarium is intact.IMPRESSIONNo acute intracranial abnormalityMild cortical atrophy likely age relatedSmall-vessel diseaseMultiple lacunar infarcts as describedElectronically signed by: CELSA JAIN (Nov 12, 2019 21:54:52)
[2019-11-12] MEDS ORDERED: ASPIRIN ONE (22:17)
[2019-11-12] MEDS: ASPIRIN PO ONE ×2 (22:19→22:21)
[2019-11-13 00:17] LABS: BILIRUBIN,URINE NEGATIVE (NEGATIVE); BLOOD/HEMOGLOBIN,URINE 2+ (NEGATIVE); GLUCOSE, URINE NEGATIVE (NEGATIVE); KETONES,URINE NEGATIVE (NEGATIVE); LEUKOCYTE ESTERASE ,URINE NEGATIVE (NEGATIVE); NITRITES,URINE NEGATIVE (NEGATIVE); PROTEIN,URINE 2+ (NEGATIVE); UROBILINOGEN,URINE NORMAL (NORMAL)
[2019-11-13 00:34] LABS: AMORPHOUS SEDIMENT,UR 1+ /HPF (NEGATIVE); APPEARANCE,URINE SLIGHTLY HAZY (CLEAR); BACTERIA,URINE TRACE /HPF (NEGATIVE); COLOR,URINE YELLOW (YELLOW); MUCUS,URINE FEW /HPF (NEGATIVE); SQUAMOUS EPITHELIAL CELL,UR RARE /HPF (NEGATIVE)
[2019-11-13 06:02] LABS: BASOPHILS % (AUTO) 0.3 % (0.2-1.0); HEMATOCRIT 31.6 % (36.0-47.0); LYMPHOCYTES # (AUTO) 0.8 X10^3/uL (1.3-2.9); LYMPHOCYTES % (AUTO) 7.5 % (21.0-51.0); MEAN CORPUSCULAR HEMOGLOBIN 31.9 pg (27.0-34.0); MEAN CORPUSCULAR HGB CONC 34.9 g/dL (33.0-35.0); MEAN CORPUSCULAR VOLUME 91.3 fL (80.0-100.0); MEAN PLATELET VOLUME 8.6 fL (7.4-11.0); MONOCYTES # (AUTO) 0.5 x10^3/uL (0.3-0.8); MONOCYTES % (AUTO) 4.8 % (0.0-13.0); NEUTROPHILS % (AUTO) 87.4 % (42.0-75.0); PLATELET COUNT 182 X10^3/uL (150.0-450.0); RED BLOOD COUNT 3.45 X10^6/uL (3.5-5.4); RED CELL DISTRIBUTION WIDTH 12.6 % (11.6-16.5); WHITE BLOOD COUNT 10.3 X10^3/uL (3.6-10.0)
[2019-11-13 06:30] LABS: ALANINE AMINOTRANSFERASE 22 Units/L (12-78); ALBUMIN 3.1 g/dL (3.4-5.0); ALKALINE PHOSPHATASE 133 Units/L (46-116); ASPARTATE AMINO TRANSFERASE 23 Units/L (15-37); BLOOD UREA NITROGEN 19 mg/dL (7-18); CARBON DIOXIDE 27.7 mmol/L (21-32); CHLORIDE 103 mmol/L (98-107); COR CA(FOR HYPOALB) 9.7 mg/dL (8.5-10.1); CREATININE 0.77 mg/dL (0.55-1.02); SODIUM 140 mmol/L (136-145); TOTAL PROTEIN 6.8 g/dL (6.4-8.2); eGFR NON BLACK RACES > 60 (>60)
[2019-11-13] MEDS ORDERED: POTASSIUM CHLORIDE LIQ 20 MEQ UDC PO PRN (06:36)
[2019-11-13] MEDS ORDERED: K-DUR TAB 20 MEQ PO PRN (06:36)
[2019-11-13] MEDS ORDERED: K-RIDER 10 MEQ/NS 100 ML 10 MEQ/100 ML BAG IV PRN (06:36)
[2019-11-13] MEDS ORDERED: KLOR-CON PO PRN (06:36)
[2019-11-13] MEDS ORDERED: MICRO K EXTEN CAP 10 MEQ PO PRN (06:36)
[2019-11-13] MEDS ORDERED: POTASSIUM CHL 40 MEQ/NS 0.45% 500 ML IV PRN (06:36)
[2019-11-13] MEDS ORDERED: POTASSIUM CHL 60 MEQ/NS 0.45% 500 ML IV PRN (06:36)
[2019-11-13] MEDS: LIPITOR TAB 40 MG PO SCH (08:51)
[2019-11-13] MEDS: ASPIRIN PO SCH (08:51)
--- NOTE | 2019-11-13 10:30 | DR.H&P ---
H&P History & Physical for Day of: H&P Date: 11/13/19 Chief Complaint Chief Complaint: confusion, delayed speech, lethargy Allergies Allergies Allergy/AdvReac Type Severity Reaction Status Date / Time Penicillins Allergy Verified 11/12/19 17:14 History of Present Illness History of Present Illness: Ms. Bates is a 74y/o female with a PMH of CVA, HTN, renal stones was brought by her son due to lethargy, altered mental status and change in speech. Patient was noted to be more drowsy and confused yesterday along with delayed in responding. ED work up included CT-head which showed chronic multiple lacunar infarcts, no acute process. CXR was negative. She was given asa 325 mg and started on Lipitor. Today, patient is alert and oriented x 3, no focal neurological deficit noted. She states she was more drowsy yesterday and that's probably why her son brought her to the ED. She does not recall having prior stroke. Labs: Potassium 3.0, Mg 1.7, WBC trending down Plan: MRI-brain, echo and carotid U/S ordered as per stroke protocol, PT/OT. Replace K as per protocol. Neuro checks, continue telemetry. Past Medical History Past Medical History: CVA, Hypertension and Kidney Stones Past Surgical History Surgical History: Cholecystectomy and Tonsillectomy Family History Family Medical History: Diabetes Mellitus, Cancer, [place] and Hypertension Social History Does patient currently use any type of tobacco product: Yes Have you used tobacco products in the last 12 months: Yes Type of Tobacco Use: Vapes Does any household member use tobacco: No Alcohol Use: Rarely Drug Use: None Medications Home Medications: Penicillins Allergy (Verified 11/12/19 17:14) Labs Result Diagrams: 11/13/19 04:12 11/13/19 04:12 Labs: Laboratory WBC 10.3 X10^3/uL (3.6-10.0) H 11/13/19 04:12 RBC 3.45 X10^6/uL (3.5-5.4) L 11/13/19 04:12 Hgb 11.0 g/dL (12.0-16.0) L 11/13/19 04:12 Hct 31.6 % (36.0-47.0) L 11/13/19 04:12 MCV 91.3 fL (80.0-100.0) 11/13/19 04:12 MCH 31.9 pg (27.0-34.0) 11/13/19 04:12 MCHC 34.9 g/dL (33.0-35.0) 11/13/19 04:12 RDW 12.6 % (11.6-16.5) 11/13/19 04:12 Plt Count 182 X10^3/uL (150.0-450.0) 11/13/19 04:12 Plt Count Comment Adequate (ADEQUATE) 11/12/19 20:46 MPV 8.6 fL (7.4-11.0) 11/13/19 04:12 Neut % (Auto) 87.4 % (42.0-75.0) H 11/13/19 04:12 Lymph % (Auto) 7.5 % (21.0-51.0) L 11/13/19 04:12 [place] % (Auto) 4.8 % (0.0-13.0) 11/13/19 04:12 Eos % (Auto) 0.0 % (0.9-2.9) L 11/13/19 04:12 Baso % (Auto) 0.3 % (0.2-1.0) 11/13/19 04:12 Neut # (Auto) 9.0 x10^3/uL (2.2-4.8) H 11/13/19 04:12 Lymph # (Auto) 0.8 X10^3/uL (1.3-2.9) L 11/13/19 04:12 [place] # (Auto) 0.5 x10^3/uL (0.3-0.8) 11/13/19 04:12 Eos # (Auto) 0.0 x10^3/uL (0.0-0.2) 11/13/19 04:12 Baso # (Auto) 0.0 X10^3/uL (0.0-0.1) 11/13/19 04:12 Absolute Nucleated RBC 0.0 /100WBC 11/13/19 04:12 Total Counted 100 11/12/19 20:46 Neutrophils % (Manual) 85 % (39-76) H 11/12/19 20:46 Lymphocytes % (Manual) 10 % (13-43) L 11/12/19 20:46 Monocytes % (Manual) 5 % (4-9) 11/12/19 20:46 Plt Morphology Comment Normal (NORMAL) 11/12/19 20:46 RBC Morphology Normal (NORMAL) 11/12/19 20:46 Sodium 140 mmol/L (136-145) 11/13/19 04:12 Corrected Sodium TNP 11/13/19 04:12 Potassium 3.0 mmol/L (3.5-5.1) L* 11/13/19 04:12 Chloride 103 mmol/L (98-107) 11/13/19 04:12 Carbon Dioxide 27.7 mmol/L (21-32) 11/13/19 04:12 BUN 19 mg/dL (7-18) H 11/13/19 04:12 Creatinine 0.77 mg/dL (0.55-1.02) 11/13/19 04:12 Est GFR (MDRD) Af Amer > 60 (>60) 11/13/19 04:12 Est GFR (MDRD) Non-Af > 60 (>60) 11/13/19 04:12 Glucose 101 mg/dL (65-99) H 11/13/19 04:12 Calcium 9.0 mg/dL (8.5-10.1) 11/13/19 04:12 Corrected Calcium 9.7 mg/dL (8.5-10.1) 11/13/19 04:12 Magnesium 1.7 mg/dL (1.7-2.9) 11/13/19 04:12 Total Bilirubin 0.70 mg/dL (0.2-1.0) 11/13/19 04:12 AST 23 Units/L (15-37) 11/13/19 04:12 ALT 22 Units/L (12-78) 11/13/19 04:12 Alkaline Phosphatase 133 Units/L (46-116) H 11/13/19 04:12 Troponin I < 0.02 ng/mL (0-1.5) 11/12/19 20:46 Total Protein 6.8 g/dL (6.4-8.2) 11/13/19 04:12 Albumin 3.1 g/dL (3.4-5.0) L 11/13/19 04:12 Globulin 3.7 g/dL (2.5-4.5) 11/13/19 04:12 Albumin/Globulin Ratio 0.8 Ratio (1.1-2.1) L 11/13/19 04:12 Specimen Type Catherized urine 11/12/19 23:11 Urine Color Yellow (YELLOW) 11/12/19 23:11 Urine Appearance Slightly hazy (CLEAR) 11/12/19 23:11 Urine pH 6.0 (5.0 - 8.0) 11/12/19 23:11 Ur Specific [place] 1.020 (1.000-1.030) 11/12/19 23:11 Urine Protein 2+ (NEGATIVE) 11/12/19 23:11 Urine Glucose (UA) Negative (NEGATIVE) 11/12/19 23:11 Urine Ketones Negative (NEGATIVE) 11/12/19 23:11 Urine Occult Blood 2+ (NEGATIVE) 11/12/19 23:11 Urine Nitrite Negative (NEGATIVE) 11/12/19 23:11 Urine Bilirubin Negative (NEGATIVE) 11/12/19 23:11 Urine Urobilinogen Normal (NORMAL) 11/12/19 23:11 Ur Leukocyte Esterase Negative (NEGATIVE) 11/12/19 23:11 Urine RBC 3-5 /HPF (0-3) A 11/12/19 23:11 Urine WBC 3-5 /HPF (0-5) 11/12/19 23:11 Ur Squamous Epith Cells Rare /HPF (NEGATIVE) 11/12/19 23:11 Amorphous Sediment 1+ /HPF (NEGATIVE) 11/12/19 23:11 Urine Bacteria Trace /HPF (NEGATIVE) 11/12/19 23:11 Urine Mucus Few /HPF (NEGATIVE) 11/12/19 23:11 Ur Culture Indicated? No/not indicated 11/12/19 23:11 Review of Systems Constitutional: No Symptoms Reported Eyes: No Symptoms Reported ENT: No Symptoms Reported Respiratory: No Symptoms Reported Cardiovascular: No Symptoms Reported Gastrointestinal: No Symptoms Reported Genitourinary: No Symptoms Reported Musculoskeletal: No Symptoms Reported Skin: No Symptoms Reported Neurological: Weakness, Change in Speech and Confusion Physical Exam Vital Signs: Temperature 98.4 F Pulse Rate [Apical] 89 Pulse Rate 121 Respiratory Rate 18 Blood Pressure [Right Arm] 142/63 Blood Pressure [Left Arm] 137/60 Blood Pressure 133/64 O2 Sat by Pulse Oximetry 98 Oriented: Normal Eyes: Normal Ear: Normal Nose: Normal Respiratory: Clear Throughout Cardiovascular: Normal Auscultation: Bowel Sounds: Normal Palpation: Normal Tenderness: Normal Skin: Normal Musculoskeletal: Normal Mood Description: Calm Affect: Normal Speech Pattern: Clear and Appropriate Assessment/Plan (1) Altered mental status: Qualifiers: Altered mental status type: transient alteration of awareness Qualified Code(s): R40.4 - Transient alteration of awareness Status: Acute (2) Lacunar infarction: Status: Acute (3) Hypertension: Qualifiers: Hypertension type: essential hypertension Qualified Code(s): I10 - Essential (primary) hypertension Status: Acute (4) Hypokalemia: Status: Acute Review H&P Reviewed: Yes Patient was examined?: Yes
[2019-11-13] MEDS: MAGNESIUM SULFATE 1 GRAM/100 mL PREMIX 1 GM/100 ML BAG IV PRN ×2 (15:45→17:06)
[2019-11-13] MEDS ORDERED: NS 250 ML IV 250 ML IV ONE (15:49)
[2019-11-14 05:44] LABS: BASOPHILS % (AUTO) 0.6 % (0.2-1.0); EOSINOPHILS % (AUTO) 0.6 % (0.9-2.9); HEMATOCRIT 32.2 % (36.0-47.0); LYMPHOCYTES # (AUTO) 1.7 X10^3/uL (1.3-2.9); LYMPHOCYTES % (AUTO) 26.8 % (21.0-51.0); MEAN CORPUSCULAR HEMOGLOBIN 31.7 pg (27.0-34.0); MEAN CORPUSCULAR HGB CONC 34.3 g/dL (33.0-35.0); MEAN CORPUSCULAR VOLUME 92.4 fL (80.0-100.0); MEAN PLATELET VOLUME 9.1 fL (7.4-11.0); MONOCYTES # (AUTO) 0.8 x10^3/uL (0.3-0.8); MONOCYTES % (AUTO) 12.6 % (0.0-13.0); NEUTROPHILS # (AUTO) 3.7 x10^3/uL (2.2-4.8); NEUTROPHILS % (AUTO) 59.4 % (42.0-75.0); PLATELET COUNT 178 X10^3/uL (150.0-450.0); RED BLOOD COUNT 3.48 X10^6/uL (3.5-5.4); RED CELL DISTRIBUTION WIDTH 12.3 % (11.6-16.5); WHITE BLOOD COUNT 6.3 X10^3/uL (3.6-10.0)
[2019-11-14 05:47] LABS: BLOOD UREA NITROGEN 13 mg/dL (7-18); CALCIUM 8.7 mg/dL (8.5-10.1); CARBON DIOXIDE 26.3 mmol/L (21-32); CHLORIDE 105 mmol/L (98-107); CREATININE 0.68 mg/dL (0.55-1.02); SODIUM 141 mmol/L (136-145); eGFR NON BLACK RACES > 60 (>60)
--- NOTE | 2019-11-14 08:24 | VAS ---
HISTORYAltered mental status. TIA. Evaluate for possible carotid artery stenosis.STUDYCarotid Doppler examCOMPARISONNoneTECHNIQUEMultiple sky scale and color flow Doppler images of the right and left carotid arterial system were obtained. The vertebral arterial system was evaluated as well.FINDINGSMild degree of plaque is noted in both carotid systems.Peak systolic velocities in centimeters/sec of the right internal and common carotid arteries measure 114 and 93 respectively the greatest ICA/CCA ratio on the right is 1.23.Peak systolic velocities in centimeters/sec of the left internal and common carotid arteries measure 98 and 118 respectively. The greatest ICA/CCA ratio on the left is 0.84.Antegrade flow is documented in patent vertebral arteries bilaterally.IMPRESSIONNo hemodynamically significant carotid stenosis seen on either sideElectronically signed by: HEMAL JACK (Nov 14, 2019 08:22:51)
[2019-11-14] MEDS: LIPITOR TAB 40 MG PO SCH (08:26)
[2019-11-14] MEDS: ASPIRIN PO SCH (08:26)
--- NOTE | 2019-11-14 12:18 | W.DIS.FURT ---
Summary of Discharge Discharge Summary of Date Date of Exam: 11/14/19 Admission Date Date of Admission: 11/12/19 Admission Diagnosis Hospital Course: Ms. Bates is a 74y/o female with a PMH of CVA, HTN, renal stones was brought by her son due to lethargy, altered mental status and change in speech. Patient was noted to be more drowsy and confused yesterday along with delayed in responding. ED work up included CT-head which showed chronic multiple lacunar infarcts, no acute process. CXR was negative. She was given asa 325 mg and started on Lipitor. Patient was placed on telemetry and frequent neuro checks. On exam, patient is alert and oriented x 3, no focal neurological deficit noted. She states she was more drowsy yesterday and that's probably why her son brought her to the ED. She does not recall having prior stroke. Labs: Potassium 3.0, Mg 1.7. Echo and carotid U/S was done due to stroke protocol and both studies were normal. PT/OT was consulted and patient did not need any further needs. Patient's electrolytes were replaced as needed. She was stable for discharge and will follow up with PCP as scheduled. Vital Signs: Vital Signs (72 hours) 11/12/19 17:14 11/12/19 23:12 11/13/19 00:52 Temperature 99.2 F 99.0 F 99.0 F Pulse Rate 121 H Pulse Rate [Apical] 95 H 82 Respiratory Rate 20 20 18 Blood Pressure 133/64 Blood Pressure [Left Arm] 137/60 Blood Pressure [Right Arm] 122/57 O2 Sat by Pulse Oximetry 94 L 95 95 11/13/19 02:15 11/13/19 02:50 11/13/19 04:00 Temperature 98.9 F 98.8 F 98.4 F Pulse Rate Pulse Rate [Apical] 87 94 H 89 Respiratory Rate 18 20 18 Blood Pressure Blood Pressure [Left Arm] Blood Pressure [Right Arm] 109/55 140/65 142/63 O2 Sat by Pulse Oximetry 94 L 98 98 11/13/19 08:00 11/13/19 12:00 11/13/19 16:00 Temperature 98.7 F 97.9 F 98.5 F Pulse Rate Pulse Rate [Apical] 98 H 85 88 Respiratory Rate 20 20 20 Blood Pressure Blood Pressure [Left Arm] Blood Pressure [Right Arm] 139/86 128/60 147/67 O2 Sat by Pulse Oximetry 91 L 92 L 96 11/13/19 19:53 11/13/19 23:56 11/14/19 04:00 Temperature 99.9 F H 99.6 F 99.9 F H Pulse Rate Pulse Rate [Apical] 99 H 90 74 Respiratory Rate 20 21 22 Blood Pressure Blood Pressure [Left Arm] 143/63 Blood Pressure [Right Arm] 133/61 151/62 O2 Sat by Pulse Oximetry 96 96 96 11/14/19 08:00 Temperature 97.9 F Pulse Rate Pulse Rate [Apical] 74 Respiratory Rate 20 Blood Pressure Blood Pressure [Left Arm] Blood Pressure [Right Arm] 135/65 O2 Sat by Pulse Oximetry 96 Labs: Laboratory Last Values WBC 6.3 X10^3/uL (3.6-10.0) 11/14/19 04:20 RBC 3.48 X10^6/uL (3.5-5.4) L 11/14/19 04:20 Hgb 11.0 g/dL (12.0-16.0) L 11/14/19 04:20 Hct 32.2 % (36.0-47.0) L 11/14/19 04:20 MCV 92.4 fL (80.0-100.0) 11/14/19 04:20 MCH 31.7 pg (27.0-34.0) 11/14/19 04:20 MCHC 34.3 g/dL (33.0-35.0) 11/14/19 04:20 RDW 12.3 % (11.6-16.5) 11/14/19 04:20 Plt Count 178 X10^3/uL (150.0-450.0) 11/14/19 04:20 Plt Count Comment Adequate (ADEQUATE) 11/12/19 20:46 MPV 9.1 fL (7.4-11.0) 11/14/19 04:20 Neut % (Auto) 59.4 % (42.0-75.0) 11/14/19 04:20 Lymph % (Auto) 26.8 % (21.0-51.0) 11/14/19 04:20 [place] % (Auto) 12.6 % (0.0-13.0) 11/14/19 04:20 Eos % (Auto) 0.6 % (0.9-2.9) L 11/14/19 04:20 Baso % (Auto) 0.6 % (0.2-1.0) 11/14/19 04:20 Neut # (Auto) 3.7 x10^3/uL (2.2-4.8) 11/14/19 04:20 Lymph # (Auto) 1.7 X10^3/uL (1.3-2.9) 11/14/19 04:20 [place] # (Auto) 0.8 x10^3/uL (0.3-0.8) 11/14/19 04:20 Eos # (Auto) 0.0 x10^3/uL (0.0-0.2) 11/14/19 04:20 Baso # (Auto) 0.0 X10^3/uL (0.0-0.1) 11/14/19 04:20 Absolute Nucleated RBC 0.0 /100WBC 11/14/19 04:20 Total Counted 100 11/12/19 20:46 Neutrophils % (Manual) 85 % (39-76) H 11/12/19 20:46 Lymphocytes % (Manual) 10 % (13-43) L 11/12/19 20:46 Monocytes % (Manual) 5 % (4-9) 11/12/19 20:46 Plt Morphology Comment Normal (NORMAL) 11/12/19 20:46 RBC Morphology Normal (NORMAL) 11/12/19 20:46 Sodium 141 mmol/L (136-145) 11/14/19 04:20 Corrected Sodium TNP 11/14/19 04:20 Potassium 4.0 mmol/L (3.5-5.1) 11/14/19 04:20 Chloride 105 mmol/L (98-107) 11/14/19 04:20 Carbon Dioxide 26.3 mmol/L (21-32) 11/14/19 04:20 BUN 13 mg/dL (7-18) 11/14/19 04:20 Creatinine 0.68 mg/dL (0.55-1.02) 11/14/19 04:20 Est GFR (MDRD) Af Amer > 60 (>60) 11/14/19 04:20 Est GFR (MDRD) Non-Af > 60 (>60) 11/14/19 04:20 Glucose 99 mg/dL (65-99) 11/14/19 04:20 Calcium 8.7 mg/dL (8.5-10.1) 11/14/19 04:20 Corrected Calcium 9.7 mg/dL (8.5-10.1) 11/13/19 04:12 Magnesium 2.0 mg/dL (1.7-2.9) 11/14/19 04:20 Total Bilirubin 0.70 mg/dL (0.2-1.0) 11/13/19 04:12 AST 23 Units/L (15-37) 11/13/19 04:12 ALT 22 Units/L (12-78) 11/13/19 04:12 Alkaline Phosphatase 133 Units/L (46-116) H 11/13/19 04:12 Troponin I < 0.02 ng/mL (0-1.5) 11/12/19 20:46 Total Protein 6.8 g/dL (6.4-8.2) 11/13/19 04:12 Albumin 3.1 g/dL (3.4-5.0) L 11/13/19 04:12 Globulin 3.7 g/dL (2.5-4.5) 11/13/19 04:12 Albumin/Globulin Ratio 0.8 Ratio (1.1-2.1) L 11/13/19 04:12 Specimen Type Catherized urine 11/12/19 23:11 Urine Color Yellow (YELLOW) 11/12/19 23:11 Urine Appearance Slightly hazy (CLEAR) 11/12/19 23:11 Urine pH 6.0 (5.0 - 8.0) 11/12/19 23:11 Ur Specific [place] 1.020 (1.000-1.030) 11/12/19 23:11 Urine Protein 2+ (NEGATIVE) 11/12/19 23:11 Urine Glucose (UA) Negative (NEGATIVE) 11/12/19 23:11 Urine Ketones Negative (NEGATIVE) 11/12/19 23:11 Urine Occult Blood 2+ (NEGATIVE) 11/12/19 23:11 Urine Nitrite Negative (NEGATIVE) 11/12/19 23:11 Urine Bilirubin Negative (NEGATIVE) 11/12/19 23:11 Urine Urobilinogen Normal (NORMAL) 11/12/19 23:11 Ur Leukocyte Esterase Negative (NEGATIVE) 11/12/19 23:11 Urine RBC 3-5 /HPF (0-3) A 11/12/19 23:11 Urine WBC 3-5 /HPF (0-5) 11/12/19 23:11 Ur Squamous Epith Cells Rare /HPF (NEGATIVE) 11/12/19 23:11 Amorphous Sediment 1+ /HPF (NEGATIVE) 11/12/19 23:11 Urine Bacteria Trace /HPF (NEGATIVE) 11/12/19 23:11 Urine Mucus Few /HPF (NEGATIVE) 11/12/19 23:11 Ur Culture Indicated? No/not indicated 11/12/19 23:11 Reason For Visit: AMS, LACUNAR CVA Discharge Date Discharge Date: 11/14/19 Discharge Diagnosis All Active Problems (Updated 11/17/19 @ 10:53 by Nydia Chacon) Hypokalemia (Acute) Altered mental status (Acute) Lacunar infarction (Chronic) Hypertension (Chronic) Diverticulosis of colon (Chronic) Plan of Treatment: Continue with present treatment and follow up plan. Pt is to keep follow up appointment as instructed and take medications as ordered. Discharge Medications Discharge Medications: Penicillins Allergy (Verified 11/12/19 17:14) New Prescriptions aspirin 325 mg PO DAILY 30 Days #30 tab 11/14/19 [Rx] atorvastatin 40 mg PO DAILY 30 Days #30 tab 11/14/19 [Rx] Follow up and Referral Follow Up: 1 Week (PCP) Discharge Disposition Assessment: Patient stable no acute distress noted at time of discharge. Discharge Disposition: Home Discharge Condition: Stable
[2019-11-14 13:42] VITALS: BP 146/65
== END 2019-11-14 13:40 | disposition home or self-care (01) | DRG 66 ==
LOC: ER 17:13 → MED/SURG 11-13 02:01
PROVIDERS: ADMIT Family Medicine; ATTEND Family Medicine
DX: E87.6 Hypokalemia; I10 Essential (primary) hypertension; I63.81 Other cerebral infarction due to occlusion or stenosis of small artery; R40.4 Transient alteration of awareness